=== PATIENT | female | born 1975 | race Caucasian/White ===

== ENCOUNTER 2025-05-20 08:33 | Day surgery (SDC) | payer BC ==
[2025-05-20] MEDS: Lactated Ringers 1,000 ML IV SCH (09:46)
[2025-05-20] MEDS ORDERED: Midazolam 1 MG/ML 2 ML SDV ONE (09:52)
[2025-05-20] MEDS ORDERED: Propofol 200 MG/20 ML SDV ONE (09:52)
[2025-05-20] MEDS ORDERED: fentaNYL 100 MCG/2 ML SDV ONE (09:52)
== END 2025-05-20 12:15 | disposition home or self-care (01) ==
LOC: JP.SDS 08:33
PROVIDERS: ATTEND Surgery
DX: Z12.11 Encounter for screening for malignant neoplasm of colon (principal); Z88.2 Allergy status to sulfonamides; Z91.013 Allergy to seafood
CPT/HCPCS: 00812; 45378; 81025; J2250; J2704; J3010; J7120